=== PATIENT | male | born 1955 | race African-American/Black ===

== ENCOUNTER 2020-09-27 19:33 | Observation (INO) ==
[2020-09-27] MEDS ORDERED: LABETALOL 20 MG/4 ML SYRINGE IV STA (20:43)
[2020-09-27 21:21] LABS: Basophils % 0.8 % (0.0-0.8); Eosinophils # 0.1 10*3/uL (0.0-0.87); Eosinophils % 1.9 % (0.00-10.9); Hematocrit 42.6 VOL% (42.0-52.0); Hemoglobin 14.2 GM/DL (14.0-18.0); Immature Granulocytes % 0.2 %; Immature Granulocytes Absolute 0.01 #; Lymphocytes # 1.3 10*3/uL (1.4-4.0); Lymphocytes % 23.6 % (21.2-54.2); Mean Corpuscular HGB Conc 33.3 GM/DL (32-36); Mean Corpuscular Volume 90.8 FL (87-102); Mean Platelet Volume 9.4 FL (9.6-12.0); Monocytes % 11.8 % (1.7-12.7); Neutrophils % 61.7 % (38.7-73.9); Platelet Count 165 T/CUMM (130-400); Red Blood Count 4.69 MC/CUMM (3.8-5.5); White Blood Count 5.3 T/CUMM (4-12)
[2020-09-27] MEDS ORDERED: NITROGLYCERIN SL 0.4 MG TABLET SL STA (21:44)
[2020-09-27] MEDS ORDERED: ASPIRIN EC 325 MG TABLET PO STA (21:44)
[2020-09-27 21:45] LABS: Bilirubin,Total 0.8 MG/DL (0.2-1.0); Calcium 9.5 MG/DL (8.5-10.1); Osmolality,Calculated 274.7 MOS/KG (273-304); Potassium 3.6 MMOL/L (3.5-5.1)
[2020-09-27] MEDS ORDERED: ONDANSETRON 4 MG/2 ML VIAL IV ONE (22:09)
[2020-09-27] MEDS ORDERED: MORPHINE 4 MG/1 ML VIAL IV STA (22:09)
[2020-09-27] MEDS ORDERED: ACETAMINOPHEN 325 MG TABLET PO PRN (23:11)
[2020-09-27] MEDS ORDERED: hydrALAZINE 20 MG/1 ML VIAL IV PRN (23:11)
[2020-09-27] MEDS ORDERED: DOCUSATE SODIUM 100 MG CAPSULE PO PRN (23:11)
[2020-09-27] MEDS ORDERED: DEXTROSE 50% 25 GM/50 ML VIAL IV PRN (23:11)
[2020-09-27] MEDS ORDERED: GLUCAGON 1 MG VIAL IM PRN (23:11)
[2020-09-27] MEDS ORDERED: MORPHINE 4 MG/1 ML VIAL IV PRN (23:11)
[2020-09-27] MEDS ORDERED: ONDANSETRON 4 MG/2 ML VIAL IV PRN (23:11)
[2020-09-27] MEDS ORDERED: NITROGLYCERIN 2% OINT 1 INCH/GM PACK TOP STA (23:15)
[2020-09-27] MEDS ORDERED: NITROGLYCERIN SL 0.4 MG TABLET SL PRN (23:20)
[2020-09-27] MEDS ORDERED: BUTALBITAL/ACETAMIN/CAFFEINE 50-325-40 MG TABLET PO PRN (23:46)
[2020-09-28] MEDS: ENOXAPARIN 120 MG/0.8 ML SYRINGE SUBCUT SCH ×2 (00:06→10:32)
[2020-09-28 02:14] LABS: Barbiturates Screen,Urine Negative (Negative); Benzodiazepines Screen,Urine Negative (Negative); Cannabinoid Screen,Urine Negative (Negative); Opiate Screen,Urine Positive (Negative); Phencyclidine Screen,Urine Negative (Negative)
[2020-09-28 06:12] LABS: Basophils % 0.6 % (0.0-0.8); Eosinophils # 0.1 10*3/uL (0.0-0.87); Eosinophils % 2.3 % (0.00-10.9); Hematocrit 42.5 VOL% (42.0-52.0); Hemoglobin 14.1 GM/DL (14.0-18.0); Immature Granulocytes % 0.4 %; Immature Granulocytes Absolute 0.02 #; Lymphocytes # 1.2 10*3/uL (1.4-4.0); Lymphocytes % 25.6 % (21.2-54.2); Mean Corpuscular HGB Conc 33.2 GM/DL (32-36); Monocytes % 10.6 % (1.7-12.7); Neutrophils % 60.5 % (38.7-73.9); Platelet Count 176 T/CUMM (130-400); Red Blood Count 4.62 MC/CUMM (3.8-5.5); Red Cell Distribution Width 14.2 % (9.3-17.3); White Blood Count 4.7 T/CUMM (4-12)
[2020-09-28 06:36] LABS: Calcium 9.5 MG/DL (8.5-10.1); Osmolality,Calculated 273.8 MOS/KG (273-304); Potassium 3.4 MMOL/L (3.5-5.1); Risk Ratio 1.77; Thyroid Stimulating Hormone 2.14 uIU/ml (0.358-3.74)
[2020-09-28] MEDS ORDERED: amLODIPine 10 MG TABLET PO SCH (09:00)
[2020-09-28] MEDS ORDERED: ISOSORBIDE MONONITRATE 30 MG TABLET PO SCH (09:00)
[2020-09-28] MEDS ORDERED: ASPIRIN EC 81 MG TABLET PO SCH (09:00)
[2020-09-28] MEDS ORDERED: LOSARTAN 50 MG TABLET PO SCH (09:00)
[2020-09-28] MEDS ORDERED: METOPROLOL SUCCINATE XL 100 MG TABLET PO SCH (09:00)
[2020-09-28] MEDS ORDERED: PANTOPRAZOLE 40 MG TABLET PO SCH (09:00)
[2020-09-28 09:11] LABS: CKMB % 1.5 %
[2020-09-28 09:12] LABS: Troponin I 0.133 NG/ML (0.00-0.045)
[2020-09-28] MEDS: POTASSIUM CHLORIDE 20 MEQ TABLET PO PRN ×3 (10:29→14:40)
[2020-09-28 12:01] VITALS: BP 145/83
[2020-09-28] MEDS ORDERED: ATORVASTATIN 40 MG TABLET PO SCH (21:00)
== END 2020-09-28 14:50 | disposition home or self-care (01) ==
LOC: N.EDINP 19:33 → N.ED 19:33 → N.EDINP 09-28 01:53 → N.TELES 09-28 03:06
PROVIDERS: ADMIT Internal Medicine Geriatric Medicine; ATTEND Internal Medicine Geriatric Medicine